=== PATIENT | female | born 1960 | race Caucasian/White ===

== ENCOUNTER 2017-08-02 06:21 | Emergency (ER) | payer OTHER ==
[~2017-08-02] VITALS: Ht 160 cm; Wt 71.7 kg
[~2017-08-02 06:21] MED LIST: ASPI-515 PO; ATEN50TA41 PO; ATOR20TA PO; DULO60CA7 PO; ESTR0.5T PO; LAMO200T PO; LAMO200T49 PO; MECL-85 PO; MULT-464 PO; OMEG1CAP23 PO; ONDA4TAB10 PO
[2017-08-02] MEDS ORDERED: FAMOTIDINE 20 MG/2 ML ONE (06:50)
[2017-08-02] MEDS ORDERED: EPINEPHRINE 1 MG/ML, 1ML ONE (06:50)
[2017-08-02] MEDS ORDERED: methylPREDNISolone SOD SUCC 125 MG/2 ML ONE (06:50)
[2017-08-02] MEDS ORDERED: SODIUM CHLORIDE FLUSH 10ML SYR IVF ONE (07:00)
[2017-08-02] MEDS ORDERED: methylPREDNISolone SOD SUCC 125 MG/2 ML IVPush ONE (07:00)
[2017-08-02] MEDS ORDERED: SODIUM CHLORIDE 0.9% 1,000ML IVBOLUS ONE (07:00)
[2017-08-02] MEDS ORDERED: FAMOTIDINE 20 MG/2 ML IVPush ONE (07:00)
[2017-08-02] MEDS ORDERED: EPINEPHRINE 1 MG/ML, 1ML IM ONE (07:00)
[2017-08-02 07:14] LABS: HEMATOCRIT 48.4 % (34.6-47.8); HEMOGLOBIN 16.1 g/dL (11.7-16.4); WHITE BLOOD COUNT 11.7 x10^3/uL (3.4-10)
[2017-08-02 07:20] LABS: BLOOD UREA NITROGEN 22 mg/dL (7-18)
[2017-08-02 08:50] VITALS: BP 117/66
== END 2017-08-02 10:02 | disposition home or self-care (01) ==
LOC: ED 07:16
DX: T78.2XXA Anaphylactic shock, unspecified, initial encounter (principal); I10 Essential (primary) hypertension; E78.00 Pure hypercholesterolemia, unspecified; G40.909 Epilepsy, unspecified, not intractable, without status epilepticus; Z86.73 Personal history of transient ischemic attack (TIA), and cerebral infarction without residual deficits; Y92.9 Unspecified place or not applicable
CPT/HCPCS: 36415; 80048; 82040; 85025; 93005; 96361; 96372; 96374; 96375; 99291; J0171; J2930; J7030; S0028